=== PATIENT | female | born 1955 | race Caucasian/White ===

== ENCOUNTER → 2021-12-19 | Outpatient (CLI) | payer OTHER ==
[2021-12-23 13:10] LABS: M-SPIKE, % Not Observed % (Not Observed); PROTEIN,TOTAL,URINE 4.6 mg/dL (Not Estab.)
== END | disposition home or self-care (01) ==
LOC: LAB 08:40 → LAB SHORT 08:40
PROVIDERS: Internal Medicine
DX: E87.8 Other disorders of electrolyte and fluid balance, not elsewhere classified (principal)
CPT/HCPCS: 81050; 84156; 84166

== ENCOUNTER 2022-11-01 08:13 | Emergency (ER) | payer OTHER ==
[~2022-11-01] VITALS: Ht 160 cm; Wt 73.5 kg
[2022-11-01 09:06] VITALS: BP 110/98
== END 2022-11-01 09:11 | disposition home or self-care (01) ==
LOC: ER 08:13
DX: Z02.79 Encounter for issue of other medical certificate (principal)
CPT/HCPCS: 99281

== ENCOUNTER → 2022-12-23 | Outpatient (CLI) | payer OTHER | END | disposition home or self-care (01) | LOC: LAB 11:37 → LAB SHORT 11:37 → LAB FUT 12-21 09:20 | DX: R10.13 Epigastric pain (principal) | CPT/HCPCS: 87338 ==

== ENCOUNTER 2024-03-31 12:02 | Emergency (ER) | payer OTHER ==
[~2024-03-31] VITALS: Ht 162.6 cm; Wt 73.9 kg
[2024-03-31 12:07] VITALS: BP 172/71
[2024-03-31] MEDS ORDERED: HYDCHL25 PO (12:38)
[2024-03-31] MEDS ORDERED: INSULIN AS100 UNIT/7 (12:38)
[2024-03-31] MEDS ORDERED: OMEP20ER PO (12:38)
[2024-03-31] MEDS ORDERED: LOSA50 PO (12:38)
[2024-03-31] MEDS ORDERED: EUTHYROX75 MC1 PO (12:39)
[2024-03-31] MEDS ORDERED: DULOXETINE HCL60 M1 PO (12:39)
[2024-03-31] MEDS ORDERED: FAMO20 PO (12:40)
== END 2024-03-31 15:40 | disposition home or self-care (01) ==
LOC: ER 12:02
DX: S61.210A Laceration without foreign body of right index finger without damage to nail, initial encounter (principal); E11.9 Type 2 diabetes mellitus without complications; X58.XXXA Exposure to other specified factors, initial encounter
CPT/HCPCS: 12001; 99282-25